=== PATIENT | female | born 1970 | race American Indian/Alaskan Native ===

== ENCOUNTER 2019-03-06 21:04 | Emergency (ER) | payer OTHER ==
[2019-03-06 21:34] VITALS: BP 143/68
--- NOTE | 2019-03-06 21:35 | Emergency Department Report ---
Chief Complaint: Urogenital-Female Stated Complaint: BURNING UTI/BLEEDING/FEVER Time Seen by Provider: 03/06/19 21:31 - HPI History of Present Illness: This is a 48 y.o. female that presents to the ER with urinary frequency, dysuria, and hematuria since yesterday. She reports a history of frequent UTI. LMP 02/22/19 CVA tenderness bilaterally - Exam Vital Signs: Vital Signs 03/06/19 21:32 Temperature 98.7 F Pulse Rate 93 H Respiratory 18 Rate Blood Pressure 143/68 O2 Sat by Pulse 97 Oximetry MSE screening note: Focused history and physical exam performed. Due to findings the following was ordered: Urinalysis ED Disposition for MSE Condition: Stable
[2019-03-06 22:10] LABS: Bacteria,Urine 1+ /HPF (Negative); Bilirubin,Urine NEG (Negative); Blood,Urine LG (Negative); Color,Urine Yellow (Yellow); Urobilinogen,Urine < 2.0 mg/dL (<2.0)
[2019-03-06 22:11] LABS: RBC,Urine > 182.0 /HPF (0.0-6.0); WBC,Urine > 182.0 /HPF (0.0-6.0)
[2019-03-06] MEDS ORDERED: KEFLEX PO ONE (22:58)
--- NOTE | 2019-03-06 22:58 | Emergency Department Report ---
ED Female HPI - General Chief complaint: Urogenital-Female Stated complaint: BURNING UTI/BLEEDING/FEVER Time Seen by Provider: 03/06/19 21:31 Source: patient Mode of arrival: Ambulatory Limitations: No Limitations - History of Present Illness Initial comments: Mrs. Lee is a very pleasant healthy 48-year-old female with history of frequent urinary tract infections. She normally has a urinary tract infection once a year. She states that recently ciprofloxacin has needed longer duration to resolve the issue. She has had frequent urination with burning hematuria. She has headache and generalized malaise. MD Complaint: dysuria -: Gradual, days(s) (2) Severity: mild Quality: burning Consistency: constant Improves with: urination Worsens with: none Are you Now?: No Associated Symptoms: headaches, dysuria, hematuria - Related Data Previous Rx's Medication Instructions Recorded Last Taken Type Ciprofloxacin HCl [Cipro] 500 mg PO Q12H #20 tab 07/03/13 Unknown Rx Cyclobenzaprine [Flexeril] 10 mg PO TID PRN #15 tablet 07/03/13 Unknown Rx EPINEPHrine [Epipen 2-Jacques] 0.3 mg IM PRN #1 ml 07/03/13 Unknown Rx Hydrocodone Bit/Acetaminophen 1 each PO Q6HR #20 tablet 07/03/13 Unknown Rx [Lortab 5-500 Tablet] Ibuprofen [Motrin] 600 mg PO Q8H PRN #60 tablet 07/03/13 Unknown Rx cephALEXin [Keflex] 500 mg PO Q6HR 7 Days #28 capsule 03/06/19 Unknown Rx Allergies Allergy/AdvReac Type Severity Reaction Status Date / Time sulfamethoxazole Allergy Unknown Verified 03/06/19 21:09 [From Bactrim] trimethoprim [From Bactrim] Allergy Unknown Verified 03/06/19 21:09 ED Review of Systems ROS: Stated complaint: BURNING UTI/BLEEDING/FEVER Other details as noted in HPI Gastrointestinal: denies: nausea, vomiting Genitourinary: urgency, dysuria, frequency, hematuria ED Past Medical Hx - Past Medical History Previous Medical History?: No Additional medical history: Gestational diabetes - Surgical History Past Surgical History?: Yes Hx Appendectomy: Yes Additional Surgical History: c-sec x 2, D&C - Social History Smoking Status: Never Smoker - Medications Home Medications: Home Medications Medication Instructions Recorded Confirmed Last Taken Type Ciprofloxacin HCl [Cipro] 500 mg PO Q12H #20 tab 07/03/13 Unknown Rx Cyclobenzaprine [Flexeril] 10 mg PO TID PRN #15 tablet 07/03/13 Unknown Rx EPINEPHrine [Epipen 2-Jacques] 0.3 mg IM PRN #1 ml 07/03/13 Unknown Rx Hydrocodone Bit/Acetaminophen 1 each PO Q6HR #20 tablet 07/03/13 Unknown Rx [Lortab 5-500 Tablet] Ibuprofen [Motrin] 600 mg PO Q8H PRN #60 tablet 07/03/13 Unknown Rx cephALEXin [Keflex] 500 mg PO Q6HR 7 Days #28 capsule 03/06/19 Unknown Rx ED Physical Exam - General Limitations: No Limitations General appearance: alert, in no apparent distress - Head Head exam: Present: atraumatic, normocephalic - ENT ENT exam: Present: mucous membranes moist - Neck Neck exam: Present: normal inspection - Respiratory Respiratory exam: Absent: respiratory distress - Cardiovascular Cardiovascular Exam: Present: regular rate, normal rhythm - GI/Abdominal GI/Abdominal exam: Present: soft. Absent: distended - Extremities Exam Extremities exam: Present: normal inspection - Back Exam Back exam: Present: normal inspection, full ROM. Absent: CVA tenderness (R), CVA tenderness (L) - Neurological Exam Neurological exam: Present: alert, oriented X3 - Psychiatric Psychiatric exam: Present: normal affect, normal mood - Skin Skin exam: Present: warm, dry, intact, normal color ED Course Vital Signs 03/06/19 21:32 Temperature 98.7 F Pulse Rate 93 H Respiratory 18 Rate Blood Pressure 143/68 O2 Sat by Pulse 97 Oximetry ED Medical Decision Making - Medical Decision Making UTI cystitis prescribed cephalexin first dose given in the emergency department Critical care attestation.: If time is entered above; I have spent that time in minutes in the direct care of this critically ill patient, excluding procedure time. ED Disposition Clinical Impression: UTI (urinary tract infection), Hemorrhagic cystitis Disposition: TO HOME OR SELFCARE Is pt being admited?: No Does the pt Need Aspirin: No Condition: Stable Instructions: Urinary Tract Infection in Women (ED) Prescriptions: cephALEXin [Keflex] 500 mg PO Q6HR 7 Days #28 capsule
== END 2019-03-06 23:50 | disposition home or self-care (01) ==
LOC: ED 21:04
DX: N30.81 Other cystitis with hematuria (principal); N39.0 Urinary tract infection, site not specified; Z90.49 Acquired absence of other specified parts of digestive tract; Z79.899 Other long term (current) drug therapy; Z88.2 Allergy status to sulfonamides
CPT/HCPCS: 81001; 99283